=== PATIENT | male | born 1995 | race Caucasian/White ===

== ENCOUNTER 2024-12-13 15:57 | Emergency (ER) | payer OTHER, SELFPAY ==
[2024-12-13 16:07] VITALS: BP 136/80; PULSE 67; RESP 97; TEMP 36.8
--- NOTE | 2024-12-13 17:12 | EDNOTE_ITS ---
ED Wound/Laceration-RME/HPI General Chief Complaint: Wound/Laceration Stated Complaint: Right 4th digit cut with a machine Time Seen by Provider: 12/13/24 17:12 Source: patient Arrival date/time: 12/13/24 15:57 Mode of arrival: ambulatory Limitations: no limitations RME / HPI RME / HPI narrative: 29-year-old male presents to the ED with a complaint of a laceration and a nail avulsion to the ring finger of the right hand. There is a very superficial laceration to the middle finger. Onset (ago): hour(s) Extremity Location: Right: hand Place: work Patient tetanus UTD: Yes Context: accidental Related Data Previous Rx's ?Medication ?Instructions ?Recorded cephalexin 500 mg tablet 500 mg PO QID Open fracture 12/13/24 prophylaxis #40 tabs naproxen 500 mg tablet (Naprosyn) 500 mg PO BID PRN pa in #20 tabs 12/13/24 Allergies Allergy/AdvReac Type Severity Reaction Status Date / Time No Known Drug Allergies Allergy Verified 12/13/24 16:00 Review of Systems Constitutional Constitutional: Reports system reviewed and no additional complaints, except as documented Eyes Eyes: Reports system reviewed and no additional complaints, except as documented, Denies dry eyes, Denies exophthalmos and Reports floaters Cardiovascular Cardiovascular: Denies chest pain with activity and Denies claudication ED Exam Narrative Physical exam: The right hand positive for no holes nail to the right ring finger. There is a laceration medial aspect. There is no apparent bony deformity present. Neurovascular is intact. Digit #3 of the right hand has a superficial laceration and it is also an avulsion. Neurovascular is intact. Patient retains range of motion to both the right ring finger and the right middle finger however it is decreased secondary to subjective pain. General Limitations: Present no limitations General appearance: Present alert and in no apparent distress Head Head exam: Present atraumatic Eye Eye exam: Present normal appearance, PERRL and EOMI ENT ENT exam: Present normal exam and normal oropharynx Neck Neck exam: Present normal inspection, full ROM and trachea midline Extremities Exam Extremities exam: Present normal inspection and full ROM Back Exam Back exam: Present normal inspection and full ROM Neurological Exam Neurological exam: Present alert and oriented X3 Psychiatric Psychiatric exam: Present normal affect and normal mood Skin Skin exam: Present warm, dry, intact and normal color Course Course Course Narrative: Patient will have the superficial laceration glued into place and this is the right middle finger and I will remove the avulsed nail and suture the laceration. Quality Measures none (NA) Orders Category Date Time Status Dress wound [Wound Care] NOW Care 12/13/24 18:02 Active XR hand comp RT min 3V Stat Exams 12/13/24 17:13 Completed TET,DIP/PERT AC (Adult)-Tdap [Boostrix Adult (Tdap) Med 12/13/24 18:02 Discontinued Vacc] 0.5 ml IMI .ONCE ONE Vital Signs Vital signs: Vital Signs Temperature 98.2 F 12/13/24 16:07 Pulse Rate 67 12/13/24 16:07 Respiratory Rate 97 H 12/13/24 16:07 Blood Pressure 136/80 H 12/13/24 16:07 Oxygen Delivery Method Room Air 12/13/24 16:07 Pulse ox not performed PROCEDURES: Procedure Comment Note that the nail of the ring finger had been avulsed proximal and needle drivers were inserted under the nail distally to remove the nail off the nailbed. Laceration Laceration 1: Site: other (Ring finger right hand) Side (If applicable): right Size (cm): 1.5 Description: stellate and other (Note that the ring finger of the right hand has a stellate laceration to the nail bed. There is also a extension of that laceration that includes the skin medial side which is the distal phalanx of the right hand.) Depth: simple, single layer Local Anesthetic: lidocaine 1% Amount of anesthesia used (mL): 6 Pre-repair: wound explored and irrigated extensively Skin layer closed with: nylon Suture size (cm): 5-0 Number of sutures: 2 Technique: simple, interrupted Subcutaneous layer closed with: vicryl Size: 5-0 Number of sutures: 2 Technique: simple, interrupted and other (Nylon) Wound / Laceration MDM Narrative MDM Narrative:: Patient will be discharged in no apparent distress. He will have his wound dressed. Note that the nail Patient data External records reviewed:: Other (specify) (NA) Clinical information provided by:: patient and none (NA) Social determinants that could affect healthcare access:: none (NA) Patient has the following chronic illnesses:: NA How is presenting disease/condition affected by chronic disease/condition?: no chronic disease (No chronic disease) Evaluation data The following diagnostics were reviewed and interpreted by me:: radiology exam(s) (Radiology demonstrated a distal tuft fracture.) Lab and/or radiology exams considered but not ordered:: NA Interpretation Summary: NA Medications / Prescriptions Medications or Prescriptions considered but not ordered:: N/A Medication administrations:: Medication Administration History Discontinued Medications Diphtheria/Tetanus/Acell Pertussis (Diphth,Pertuss(Acell),Tet Vac 0.5 Ml Syr- Adult) 0.5 ml IMi .ONCE ONE Stop: 12/13/24 18:03 Done Consultations Consultation(s) initiated? (list below): No Diagnosis Wound Differential Diagnosis: laceration, abscess and avulsion of skin Most likely diagnosis given after review of the tests above:: NA Admission Indicated Admission indicated?: not indicated Explain why admission is indicated or not indicated:: NA Admission Request Was there a request for admission?: No Disposition Plan Disposition Plan: Discharge Discharge Attestation Discharge Attestation: The patient and all family members were given an opportunity to ask questions and understood the discharge instructions. Discharge instructions specifically effects, indications for sooner follow up or return to the emergency department, and the expected course of current diagnosis. Patient condition: Stable Discharge Plan Plan Patient Disposition: HOME (Self Care) Discharge Disposition comment: Discharge no apparent distress Patient condition on transfer: Stable Prescriptions/Referrals Prescriptions/Med Rec: New cephalexin 500 mg tablet 500 mg PO QID Qty: 40 0RF naproxen [Naprosyn] 500 mg tablet 500 mg PO BID PRN (Reason: pain) Qty: 20 0RF Referrals: Abdon Sullivan MD [Primary Care Provider] - In 1 week Problem List Clinical Impression: Laceration of finger, ring, Avulsion of nail bed Impression comment: Discharge no apparent distress Patient/Caregiver Discharge Instructions Discharge Activity: activity as tolerated Education Materials: ED Laceration Small or ... Print Language: Croatian Stand Alone Forms: Doris Award Info., Patient Portal Info Letter PA/CHIEF CREDIT OFFICER Supervising Physician PA/CHIEF CREDIT OFFICER Supervising Physician: BREANNA
--- NOTE | 2024-12-13 17:13 | XR_ITS ---
Examination: Hand, right 3 views Technique: Hand AP, oblique, lateral 3 views Date and time of exam: December 13, 2024, 1720 hours INDICATIONS: Injury to the hand today with fourth digit pain. FINDINGS: Comminuted fractures of the ungual tuft distal phalanx fourth digit with mild separation of fracture fragments No dislocation No foreign body IMPRESSION: Comminuted fractures distal phalanx fourth digit
[2024-12-13] MEDS: DIPHTH,PERTUSS(ACELL),TET VAC 0.5 ML SYR- ADULT IMi (18:25)
[2024-12-13 18:40] VITALS: BP 110/68; PULSE 76; RESP 18; TEMP 36.7; O2SAT 100
== END 2024-12-13 18:40 | disposition home or self-care (01) ==
PROVIDERS: Emergency Provider Emergency Medicine; PCP Family Medicine
DX: S61.314A Laceration without foreign body of right ring finger with damage to nail, initial encounter (principal); W31.9XXA Contact with unspecified machinery, initial encounter; Z23 Encounter for immunization
CPT/HCPCS: 12002; 73130; 90471; 90715; 99283

== ENCOUNTER → 2025-03-04 | Outpatient (CLI) | payer OTHER, SELFPAY ==
--- NOTE | 2025-03-04 12:43 | XR_ITS ---
Examination: Lumbar spine, 5 views Technique: Lumbar spine AP, lateral, coned lateral lower lumbar spine, bilateral obliques 5 views Exam date and time: March 04, 2025, 1320 hours INDICATIONS: Low back pain several years. FINDINGS: Lumbar dextroscoliosis 15 degrees No facet arthropathy No lumbar fracture No significant lumbar disc narrowing No spondylolisthesis IMPRESSION: Prominent lumbar dextroscoliosis. No lumbar fracture or significant lumbar disc narrowing.
== END | disposition home or self-care (01) ==
PROVIDERS: PCP Family Medicine; Referring Provider Chiropractor; Visit Provider Chiropractor
DX: M41.86 Other forms of scoliosis, lumbar region (principal)
CPT/HCPCS: 72110